=== PATIENT | male | born 1960 | race Caucasian/White ===

== ENCOUNTER 2017-03-21 12:37 | Emergency (ER) | payer OTHER ==
[2017-03-21 12:43] VITALS: BP 129/90; PULSE 100; TEMP 98; BMI 29.0
--- NOTE | 2017-03-21 13:19 | PDOC ---
History of Present Illness - General Chief Complaint: Injury Stated Complaint: INJURY Time Seen by Provider: 03/21/17 13:00 History Source: Patient Exam Limitations: No Limitations - History of Present Illness Initial Comments: 03/21/17 13:34 Pt. is a 57 y/o male with no PMH (does not go to the doctor), who presents to the ED c/o left rib pain and right hand swelling. Pt. is a poor historian. Pt. states that he thinks he fell, on Sunday and states he was seen at [facility] and his hands were taped at that time. He states that he was supposed to have his hand splinted on Sunday, but the hospital didn't have splinting material so he was told to come to [facility]. He states that his rib pain is worse when he breathes, but denies bruising. He states his hand is less swollen than Sunday. Denies fevers, chills, nausea, vomiting, shortness of breath. Past History - Travel Traveled outside of the country in the last 30 days: Yes Close contact w/someone who was outside of country & ill: No - Past Medical History Allergies/Adverse Reactions: Allergies Allergy/AdvReac Type Severity Reaction Status Date / Time No Known Allergies Allergy Verified 03/21/17 12:43 Home Medications: Ambulatory Orders Guaifenesin [Robitussin] 10 ml PO Q6H #120 ml 03/21/17 Oxycodone HCl/Acetaminophen [Percocet 5-325 mg Tablet] 1 tab PO Q6H #10 tablet MDD 4 03/21/17 HTN: Yes - Psycho/Social/Smoking Cessation Hx Suicidal Ideation: No Smoking History: Current every day smoker Number of Cigarettes Smoked Daily: 5 Information on smoking cessation initiated: No Review of Systems - Review of Systems Able to Perform ROS?: Yes Is the patient limited Lithuanian proficient: No Constitutional: No: Chills, Fever, Malaise, Weakness Respiratory: Yes: Cough ("due to smoking"). No: Shortness of Breath, Wheezing Cardiac (ROS): Yes: Chest Pain (L ribs) ABD/GI: No: Diarrhea, Nausea, Vomiting Musculoskeletal: Yes: Joint Swelling (r wrist and hand) Integumentary: Yes: Erythema (R hand) Neurological: No: Headache, Numbness, Paresthesia, Weakness *Physical Exam - Vital Signs Last Vital Signs Temp Pulse Resp BP Pulse Ox 98 F 100 H 18 129/90 97 03/21/17 12:39 03/21/17 12:39 03/21/17 12:39 03/21/17 12:39 03/21/17 12:39 - Physical Exam General Appearance: Yes: Nourished, Disheveled, Alcohol on Breath Respiratory/Chest: positive: Chest Tender (L side at the level of the 8th-10th ribs), Wheezing (equal b/l breath sounds). negative: Respiratory Distress, Accessory Muscle Use Cardiovascular: positive: Regular Rhythm, Regular Rate, S1, S2 (present). negative: Murmur Extremity: positive: Normal Capillary Refill, Normal Range of Motion, Tender ( 2nd -5th R fingers tender), Swelling, Erythema (R volar hand), Other (decreased strength in the R hand.) Integumentary: positive: Dry, Warm, Swelling Medical Decision Making - Medical Decision Making 03/21/17 14:02 Pt. is a 57 y/o male with no PMH who presents c/o R hand and L rib pain. Pt. is a poor historian and smells of alcohol. Will re-order x-rays and will give toradol for pain. Will re-evaluate. 03/21/17 15:00 X-rays are negative for rib or hand fractures. Will discharge home at this time with percocet and robitussin for pain. Pt. given a referral to a PCP to follow up with. *DC/Admit/Observation/Transfer Diagnosis at time of Disposition: Rib pain on left side - Discharge Dispostion Disposition: HOME Condition at time of disposition: Good Admit: No - Prescriptions Prescriptions: Oxycodone HCl/Acetaminophen [Percocet 5-325 mg Tablet] 1 tab PO Q6H #10 tablet MDD 4 Guaifenesin [Robitussin] 10 ml PO Q6H #120 ml - Referrals Referrals: Naomi Bennett MD [Staff Physician] - - Patient Instructions Printed Discharge Instructions: DI for Costochondritis Additional Instructions: Your x-rays today were negative for any broken bones. Take 800mg ibuprofen three times a day for the next week. If you have break through pain you were prescribed Percocet. Take one pill every 6 hours as needed for pain. Do not drive after taking this medication as it may make you sleepy. You were also prescribed Robitussin. Take as prescribed for the cough. Ice and elevate your wrist for the swelling. Follow up with Dr. Bennett Return to the ED if you have worsening pain, fevers, chills, or any changes in your symptoms.
[2017-03-21] MEDS ORDERED: KETOROLAC TROMETHAMINE 30 MG/1 ML VIAL IM ONE (13:32)
[2017-03-21] MEDS ORDERED: KETOROLAC TROMETHAMINE 30 MG/1 ML VIAL ONE (13:49)
== END 2017-03-21 15:06 | disposition home or self-care (01) ==
LOC: JERFT 12:37
PROC: 3E0233Z Introduction of Anti-inflammatory into Muscle, Percutaneous Approach (ICD-10-PCS; principal; 2017-03-21)
DX: M94.0 Chondrocostal junction syndrome [Tietze] (principal)
CPT/HCPCS: 71101-TC; 73110-TC-RT; 73130-TC-RT; 99281-25

== ENCOUNTER 2017-03-26 12:05 | Emergency (ER) | payer OTHER ==
[2017-03-26 12:08] VITALS: BP 137/93; PULSE 81; TEMP 98; BMI 29.2
[2017-03-26] MEDS ORDERED: NAPROXEN 500 MG TABLET (FP) PO ONE (13:15)
[2017-03-26] MEDS ORDERED: NAPROXEN 500 MG TABLET (FP) ONE (13:17)
--- NOTE | 2017-03-26 14:17 | PDOC ---
History of Present Illness - General Chief Complaint: RX Refill Stated Complaint: RX REFILL Time Seen by Provider: 03/26/17 12:58 History Source: Patient Exam Limitations: No Limitations - History of Present Illness Initial Comments: 03/26/17 13:35 57 yr male presents to ER asking for a refill on percocet. Pt was seen in ER on 03/21/17 for evaluation of fall c/o rib pain , pt had negative xrays last week. Pt states "I need the pills to get motivated". Pt also with rash to lower abdomen since 2013. EMR reviewed from previous visit, pt had ETOH on breath previous visit. 03/26/17 14:31 03/26/17 14:57 Past History - Past Medical History Allergies/Adverse Reactions: Allergies Allergy/AdvReac Type Severity Reaction Status Date / Time No Known Allergies Allergy Verified 03/26/17 12:08 Home Medications: Ambulatory Orders Guaifenesin [Robitussin] 10 ml PO Q6H #120 ml 03/21/17 Betamethasone/Propylene Glyc [Betamethasone Dp Aug 0.05% Crm] 15 gm TP BID #1 cream..g. 03/26/17 Naproxen [Naprosyn -] 500 mg PO BID PRN #20 tablet 03/26/17 HTN: Yes - Psycho/Social/Smoking Cessation Hx Suicidal Ideation: No Smoking History: Current every day smoker Number of Cigarettes Smoked Daily: 5 Information on smoking cessation initiated: No *Physical Exam - Vital Signs Last Vital Signs Temp Pulse Resp BP Pulse Ox 98 F 81 18 137/93 98 03/26/17 12:06 03/26/17 12:06 03/26/17 12:06 03/26/17 12:06 03/26/17 12:06 - Physical Exam General Appearance: Yes: Nourished, Appropriately Dressed HEENT: positive: EOMI, SALVATORE, Normal ENT Inspection, TMs Normal, Pharynx Normal Neck: positive: Supple. negative: Tender Respiratory/Chest: positive: Lungs Clear, Normal Breath Sounds, Other (neg crepitus to left side ribs, no step off, no bruising or dimpling of skin). negative: Chest Tender, Paradoxal Breathing, Crackles, Rales, Rhonchi, Stridor, Wheezing, Hyperresonant, Dullness Cardiovascular: positive: Regular Rhythm, Regular Rate Gastrointestinal/Abdominal: positive: Normal Bowel Sounds, Soft. negative: Tender Musculoskeletal: positive: Normal Inspection Extremity: positive: Normal Capillary Refill, Normal Inspection, Normal Range of Motion. negative: Tender Integumentary: positive: Normal Color, Dry, Warm, Rash (periumbilical area with excoraited [id number] area scaly red rash, no drainage) Neurologic: positive: Fully Oriented, Alert, Normal Mood/Affect, Normal Response , Motor Strength 5/5. negative: Sensory Deficit, Finger to Nose (neg tremors, steady gait) ED Treatment Course - RADIOLOGY Radiology Studies Ordered: Category Date Time Status CHEST PA & LAT [RAD] Stat Radiology 03/26/17 13:14 Ordered - Medications Given in the ED: ED Medications Discontinued Medications Generic Name Dose Route Start Last Admin Trade Name Freq PRN Reason Stop Dose Admin Naproxen 500 mg 03/26/17 13:15 03/26/17 13:18 Naprosyn - PO 03/26/17 13:16 500 mg ONCE ONE Administration Medical Decision Making - Medical Decision Making 03/26/17 14:39 cc: rash to lower abdomen on and off since 2013 pt requesting refil of percocet "to get him motivated and get going" pt was seen 03/21/17 for fall had negative xrays , pt states he has rib pain left side. no chest pain or shortness of breath. pt denies any history of narcotic abuse or alcohol abuse vitals stable, will repeat CXR pt does not appear to be under any influenece of drugs or alcohol 03/26/17 14:57 03/26/17 14:58 *DC/Admit/Observation/Transfer Diagnosis at time of Disposition: Rib pain on left side, Rash and nonspecific skin eruption - Discharge Dispostion Disposition: HOME Condition at time of disposition: Good - Prescriptions Prescriptions: Betamethasone/Propylene Glyc [Betamethasone Dp Aug 0.05% Crm] 15 gm TP BID #1 cream..g. Naproxen [Naprosyn -] 500 mg PO BID PRN #20 tablet PRN Reason: Pain - Referrals Referrals: [facility] ([facility]) [Outside] - Patient Instructions Additional Instructions: please follow up at the clinic this week to make appointment to see primary care and the pigment pusher for the rash take naprosyn as directed for pain apply the steroid cream as directed to the rash return if any worsening symptoms
== END 2017-03-26 14:31 | disposition home or self-care (01) ==
LOC: JERFT 12:05
DX: R07.89 Other chest pain (principal); R21 Rash and other nonspecific skin eruption; I10 Essential (primary) hypertension
CPT/HCPCS: 71020-TC; 99281-25

== ENCOUNTER 2019-10-05 09:42 | Emergency (ER) | payer OTHER ==
[2019-10-05 10:01] VITALS: TEMP 98.1; BMI 30.9
--- NOTE | 2019-10-05 10:03 | PDOC ---
History of Present Illness - General Chief Complaint: Chest Pain Stated Complaint: CHEST PAIN Time Seen by Provider: 10/05/19 10:03 - History of Present Illness Initial Comments: 10/05/19 10:26 59 year old man with a history of smoking and alcohol use who presents with substernal chest pain that started 0600 today and radiated to the bilateral arms. The patient reports an association with nausea and 1 episode of emesis. He denies dizziness or shortness of breath. He has never had a pain like this before. He reports that he does not see a doctor regularly ROS GENERAL/CONSTITUTIONAL: No fever or chills. No weakness. HEAD, EYES, EARS, NOSE AND THROAT: No change in vision. No ear pain or discharge. No sore throat. CARDIOVASCULAR: + chest pain or shortness of breath RESPIRATORY: No cough, wheezing, or hemoptysis. GASTROINTESTINAL: + nausea, vomiting, No diarrhea or constipation. GENITOURINARY: No dysuria, frequency, or change in urination. MUSCULOSKELETAL: No joint or muscle swelling or pain. No neck or back pain. SKIN: No rash NEUROLOGIC: No headache, vertigo, loss of consciousness, or change in strength/sensation. ENDOCRINE: No increased thirst. No abnormal weight change HEMATOLOGIC/LYMPHATIC: No anemia, easy bleeding, or history of blood clots. ALLERGIC/IMMUNOLOGIC: No hives or skin allergy. PE GENERAL: Awake, alert, and fully oriented, in no acute distress HEAD: No signs of trauma, normocephalic, atraumatic EYES: EOMI, sclera anicteric, conjunctiva clear ENT: oropharynx clear without exudates. Moist mucosa NECK: Normal ROM, supple LUNGS: No distress, speaks full sentences, clear to auscultation bilaterally HEART: Regular rate and rhythm, normal S1 and S2, no murmurs, rubs or gallops, peripheral pulses normal and equal bilaterally. ABDOMEN: Soft, nontender. No guarding, no rebound. No masses EXTREMITIES : Normal inspection, Normal range of motion, no edema. No clubbing or cyanosis. NEUROLOGICAL: Cranial nerves II through XII grossly intact. 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 03/26/17 Naproxen [Naprosyn -] 500 mg PO BID PRN #20 tablet 03/26/17 COPD: No HTN: Yes - Psycho Social/Smoking Cessation Hx Smoking History: Current every day smoker Have you smoked in the past 12 months: Yes Number of Cigarettes Smoked Daily: 6 Information on smoking cessation initiated: No Hx Alcohol Use: Yes Drug/Substance Use Hx: No *Physical Exam - Vital Signs Last Vital Signs Temp Pulse Resp BP Pulse Ox 98.1 F 54 L 20 133/83 97 10/05/19 09:58 10/05/19 09:58 10/05/19 09:58 10/05/19 09:58 10/05/19 09:58 ED Treatment Course - LABORATORY CBC & Chemistry Diagram: 10/05/19 10:25 10/05/19 10:25 Discharge - Discharge Information Problems reviewed: Yes Clinical Impression/Diagnosis: STEMI (ST elevation myocardial infarction) Condition: Stable Disposition: TRANSFER ACUTE CARE/OTHER HOSP - Follow up/Referral - Patient Discharge Instructions - Post Discharge Activity
[2019-10-05] MEDS ORDERED: morphine CARPU-JECT 4 MG/1 ML DISP.SYRIN IVPUSH ONE ×2 (10:13→10:58)
[2019-10-05] MEDS ORDERED: ASPIRIN 81 MG CHEWABLE TABLETS PO ONE (10:13)
[2019-10-05] MEDS ORDERED: ASPIRIN 81 MG CHEWABLE TABLETS ONE (10:15)
[2019-10-05] MEDS ORDERED: morphine SULFATE 4 MG/ML VIAL ONE ×2 (10:16→11:03)
[2019-10-05 10:34] LABS: BASO % 0.7 % (0-2.0); EOS % 1.5 % (0-4.5); HEMATOCRIT 44.6 % (35.4-49); HEMOGLOBIN 15.3 GM/dL (11.7-16.9); LYMPH % 12.1 % (8-40); MCH 31.7 pg (25.7-33.7); MCHC 34.4 g/dl (32.0-35.9); MEAN PLT VOLUME 7.3 fl (7.5-11.1); MONO % 4.8 % (3.8-10.2); NEUT % 80.9 % (42.8-82.8); PLATELET COUNT 237 K/MM3 (134-434); RBC 4.85 M/mm3 (4.00-5.60); RDW 12.5 % (11.9-15.9); WHITE BLOOD COUNT 8.4 K/mm3 (4.0-10.0)
[2019-10-05] MEDS ORDERED: HEPARIN NA (PORCINE) 5,000 UNITS/ML 1ML VIAL IVPUSH ONE (10:42)
[2019-10-05] MEDS ORDERED: TICAGRELOR 90 MG TABLET PO ONE ×3 (10:42→10:50)
[2019-10-05] MEDS ORDERED: HEPARIN NA (PORCINE) 5,000 UNITS/ML 1ML VIAL ONE (10:48)
[2019-10-05 11:04] VITALS: BP 136/78; PULSE 69
[2019-10-05 11:04] LABS: INR 0.84 (0.83-1.09); PROTHROMBIN TIME (PATIENT) 9.9 SEC (9.7-13.0)
[2019-10-05 11:06] LABS: ALBUMIN 4.2 g/dl (3.4-5.0); ALK PHOS 113 U/L (45-117); ANION GAP 13 MMOL/L (8-16); BILIRUBIN,TOTAL 0.5 mg/dL (0.2-1); BLOOD UREA NITROGEN 11.2 mg/dL (7-18); CALCIUM 8.9 mg/dL (8.5-10.1); CHLORIDE 101 mmol/L (98-107); CO2 22 mmol/L (21-32); CREATININE 0.8 mg/dL (0.55-1.3); GLUCOSE,RANDOM 308 mg/dL (74-106); N-TERMINAL BNP 55.2 pg/ml (5-125); POTASSIUM 4.3 mmol/L (3.5-5.1); SGOT/AST 15 U/L (15-37); SGPT/ALT 26 U/L (13-61); SODIUM 135 mmol/L (136-145); TOT PROT 7.7 g/dl (6.4-8.2)
[2019-10-05 11:07] LABS: ACTIVATED PTT 33.8 SECONDS (25.2-36.5)
--- NOTE | 2019-10-05 12:48 | PDOC ---
Attending Attestation - Resident Resident Name: Yolanda Du - ED Attending Attestation I have performed the following: I have examined & evaluated the patient, The case was reviewed & discussed with the resident, I agree w/resident's findings & plan, Exceptions are as noted - HPI HPI: 10/05/19 14:58 59 years old with no past medical history active tobacco active EtOH use does not have a PCP presents to the ED with sudden onset left-sided chest pain radiating to both arms associated with nausea 1 episode of vomiting No fever no cough no shortness of breath - Physicial Exam PE: 10/05/19 14:58 Vitals: Triage Vital signs reviewed General Appearance: No acute distress, well nourished well developed, Head: Atraumatic, Cardiac: Regular rate and rhythym, no murmurs, no rubs, no gallops, Lungs: Clear to auscultation bilateral, good air movement bilaterally, Abdomen: Soft, non distended, normal bowel sounds, non tender to palpation Extremities: Full range of motion to all extremities, no cyanosis, clubbing, or edema Skin: Warm and dry, no rashes or lesions, no rash, no petechiae Psych: Normal mood, normal affect - Medical Decision Making 10/05/19 14:59 59 years old with chest pain EKG demonstrates Q waves anteriorly with ST elevations V3 V4 V5 EKG discussed with interventional cardiology at [facility] recommends repeat EKG Repeat EKG demonstrates now inferior ST depressions We will transfer patient to [facility] for catheterization Accepting MD. Dr. Bautista Pt. given ASA, Brilinta, Heparin Bolus prior to transfer Discharge - Discharge Information Problems reviewed: Yes Clinical Impression/Diagnosis: STEMI (ST elevation myocardial infarction) Qualifiers: Involved coronary artery: unspecified coronary artery Qualified Code(s): I21.3 - ST elevation (STEMI) myocardial infarction of unspecified site Condition: Stable Disposition: TRANSFER ACUTE CARE/OTHER HOSP - Admission No - Follow up/Referral - Patient Discharge Instructions - Post Discharge Activity
--- NOTE | 2019-10-06 09:41 | EKG ---
Test Reason : Blood Pressure : / mmHG Vent. Rate : 062 BPM Atrial Rate : 062 BPM P-R Int : 178 ms QRS Dur : 094 ms QT Int : 410 ms P-R-T Axes : 076 -30 053 degrees QTc Int : 416 ms SINUS RHYTHM WITH MARKED SINUS ARRHYTHMIA LEFT AXIS DEVIATION ANTEROSEPTAL INFARCT , POSSIBLY ACUTE ACUTE NE / STEMI ABNORMAL ECG WHEN COMPARED WITH ECG OF 02-JAN-2000 19:59, signnificant changes have occurred Confirmed by Calderon Weston ([id number]) on 10/06/2019 9:40:52 AM Referred By: Confirmed By:Calderon Weston
--- NOTE | 2019-10-06 09:42 | EKG ---
Test Reason : Blood Pressure : / mmHG Vent. Rate : 070 BPM Atrial Rate : 070 BPM P-R Int : 178 ms QRS Dur : 094 ms QT Int : 400 ms P-R-T Axes : 075 -34 037 degrees QTc Int : 432 ms NORMAL SINUS RHYTHM LEFT AXIS DEVIATION Anterior IL probably acute (CITED ON OR BEFORE 05-OCT-2019) ACUTE IL / STEMI ABNORMAL ECG WHEN COMPARED WITH ECG OF 05-OCT-2019 10:13, NO SIGNIFICANT CHANGE WAS FOUND Confirmed by Calderon Weston ([id number]) on 10/06/2019 9:41:52 AM Referred By: Confirmed By:Calderon Weston
[2019-10-06] MEDS ORDERED: TICAGRELOR 90 MG TABLET PO ONE (10:40)
== END 2019-10-05 11:12 | disposition short-term general hospital (02) ==
LOC: JER 09:42
PROC: 3E033NZ Introduction of Analgesics, Hypnotics, Sedatives into Peripheral Vein, Percutaneous Approach (ICD-10-PCS; principal; 2019-10-05)
PROC: 3E033GC Introduction of Other Therapeutic Substance into Peripheral Vein, Percutaneous Approach (ICD-10-PCS; 2019-10-05)
DX: I21.3 ST elevation (STEMI) myocardial infarction of unspecified site (principal); I10 Essential (primary) hypertension; F17.210 Nicotine dependence, cigarettes, uncomplicated; F10.10 Alcohol abuse, uncomplicated
CPT/HCPCS: 36415; 71045-TC-FY; 80053; 83880; 84484; 85025; 85610; 85730; 93005; 93010; 96374; 96375; 96376; 99285-25; J1644